=== PATIENT | male | born 1990 ===

== ENCOUNTER 2017-07-04 21:50 | Emergency (ER) | payer BC ==
[2017-07-04 21:55] VITALS: TEMP 98
--- NOTE | 2017-07-04 22:35 | C.PDOC ---
Time Seen by Provider: 07/04/17 22:05 Chief Complaint (Nursing): GI Problem History Per: Patient Onset/Duration Of Symptoms: Hrs (few) Current Symptoms Are (Timing): Still Present Context: Food (?) Severity: Moderate Quality Of Discomfort: denies: "Pain" Associated Symptoms: Nausea, Vomiting (x3) Alleviating Factors: None Additional History Per: Prior Records Past Medical History Reviewed: Historical Data, Nursing Documentation, Vital Signs Vital Signs: Last Vital Signs Temp 98 F 07/04/17 21:53 Pulse 62 07/04/17 21:53 Resp 16 07/04/17 21:53 BP 125/84 07/04/17 21:53 Pulse Ox 100 07/04/17 22:35 - Medical History PMH: Back Problems Surgical History: No Surg Hx Family History: States: Unknown Family Hx - Social History Hx Alcohol Use: Yes Hx Substance Use: No - Immunization History Hx Tetanus Toxoid Vaccination: No Hx Influenza Vaccination: No Hx Pneumococcal Vaccination: No Review Of Systems Except As Marked, All Systems Reviewed And Found Negative. Constitutional: Negative for: Fever, Weakness ENT: Positive for: Mouth Pain (right upper toothache for weeks). Negative for: Throat Pain Cardiovascular: Negative for: Chest Pain Respiratory: Negative for: Shortness of Breath Gastrointestinal: Positive for: Nausea, Vomiting. Negative for: Abdominal Pain , Diarrhea, Melena, Hematochezia, Hematemesis Genitourinary: Negative for: Dysuria Musculoskeletal: Negative for: Neck Pain, Back Pain Skin: Negative for: Rash Neurological: Negative for: Weakness, Numbness, Seizures, Altered Mental Status , Headache Physical Exam - Physical Exam Appears: Non-toxic, No Acute Distress Skin: Normal Color, Warm, Dry, No Rash Head: Atraumatic, Normacephalic Eye(s): bilateral: Normal Inspection, PERRL, EOMI Oral Mucosa: Moist, No Drooling, No Trismus Teeth: Caries Gingiva: No Abscess Neck: Normal ROM, Supple Cardiovascular: Rhythm Regular Respiratory: Normal Breath Sounds, No Accessory Muscle Use Gastrointestinal/Abdominal: Soft, No Tenderness, No Distention Back: No CVA Tenderness Extremity: Normal ROM Neurological/Psych: Oriented x3, Normal Cognition, Normal Motor, Normal Sensation ED Course And Treatment O2 Sat by Pulse Oximetry: 100 Pulse Ox Interpretation: Normal Progress - Interventions Interventions:: Observation - Medications Administered Intravenous: Antiemetic, H-2 kellie - Data Reviewed Data Reviewed: Old records - Patient Status Patient status: Completely improved - Continuity of Care Discussed patient case with:: Patient, Family-HIPPA compliant, ED Nurse - Patient Plan Patient Plan: Discharge, F/U with PCP Disposition Counseled Patient/Family Regarding: Studies Performed, Diagnosis, Need For Followup, Rx Given - Disposition Disposition: HOME/ ROUTINE Disposition Time: 23:16 Condition: IMPROVED Additional Instructions: Follow up with your doctor and with a Dentist. Return to the ER if you develop fever, abdominal pain, worsening of symptoms or if you have any other concerns. Prescriptions: Metoclopramide [Reglan] 1 tab PO TID PRN #15 tab PRN Reason: Nausea/Vomiting Instructions: Acute Nausea and Vomiting (ED), Dental Caries (ED) Forms: [employer] (L[employer]), [facility], Work Excuse - Clinical Impression Clinical Impression: Nausea & vomiting, Toothache
[2017-07-04 23:28] VITALS: BP 111/68; PULSE 78; RESP 20; O2SAT 99
== END 2017-07-04 23:28 | disposition home or self-care (01) ==
LOC: C.ER 21:50
DX: R11.2 Nausea with vomiting, unspecified (principal); K08.89 Other specified disorders of teeth and supporting structures

== ENCOUNTER 2017-07-07 18:01 | Emergency (ER) | payer BC ==
[2017-07-07] MEDS ORDERED: Sodium Chloride 0.9% 1,000 ML IV ONE (18:32)
--- NOTE | 2017-07-07 18:41 | C.PDOC ---
History Of Present Illness 26 year old male presents to the ED c/o 3-4 days of abdominal discomfort. Patient was seen in the ED on Wednesday where he had no tests done but was prescribed Reglan to use at home, patient reports the medication started to help but does not provide relief anymore. Patient reports he had 2 episodes of vomiting, is not able to eat now but when he does feels his stomach is "heavy". He states that when he is able to eat food feels like is stuck on his stomach and does not move. Patient also reports his urine is dark and has small bowel movements due to the fact that he does not eat. Patient denies fever, back pain , dysuria, hematuria, other medical issues. Time Seen by Provider: 07/07/17 18:24 Chief Complaint (Nursing): Abdominal Pain History Per: Patient History/Exam Limitations: no limitations Onset/Duration Of Symptoms: Days Current Symptoms Are (Timing): Still Present Location Of Pain/Discomfort: Diffuse Radiation Of Pain To:: None Quality Of Discomfort: "Pain" Associated Symptoms: Vomiting, Loss Of Appetite Exacerbating Factors: None Alleviating Factors: None Recent travel outside of the [place]: No Additional History Per: Patient Past Medical History Reviewed: Historical Data, Nursing Documentation, Vital Signs Vital Signs: Last Vital Signs Temp 98.4 F 07/07/17 18:15 Pulse 88 07/07/17 18:15 Resp 20 07/07/17 18:15 BP 132/88 07/07/17 18:15 Pulse Ox 97 07/07/17 20:13 - Medical History PMH: Back Problems Surgical History: No Surg Hx Family History: States: Unknown Family Hx - Social History Hx Alcohol Use: Yes Hx Substance Use: No - Immunization History Hx Tetanus Toxoid Vaccination: No Hx Influenza Vaccination: No Hx Pneumococcal Vaccination: No Review Of Systems Constitutional: Negative for: Fever, Chills Cardiovascular: Negative for: Chest Pain, Palpitations Respiratory: Negative for: Cough, Shortness of Breath Gastrointestinal: Positive for: Vomiting, Abdominal Pain, Constipation Genitourinary: Negative for: Dysuria, Hematuria Musculoskeletal: Negative for: Back Pain Skin: Negative for: Rash Neurological: Negative for: Weakness, Numbness Physical Exam - Physical Exam Appears: Non-toxic, No Acute Distress Skin: Normal Color, Warm, Dry Head: Atraumatic, Normacephalic Nose: No Discharge Oral Mucosa: Dry Neck: Normal ROM, Supple Chest: Symmetrical Cardiovascular: Rhythm Regular, No Murmur Respiratory: Normal Breath Sounds, No Rales, No Rhonchi, No Wheezing Gastrointestinal/Abdominal: Soft, No Tenderness, No Distention, No Rebound Extremity: Normal ROM, No Pedal Edema, No Calf Tenderness, No Swelling Neurological/Psych: Oriented x3, Normal Speech, Normal Cognition Gait: Steady ED Course And Treatment - Laboratory Results Result Diagrams: 07/07/17 18:44 07/07/17 18:44 Lab Interpretation: Abnormal (Low WBC with lymphocytic shift on diff.) O2 Sat by Pulse Oximetry: 97 (On RA) Pulse Ox Interpretation: Normal Reevaluation Time: 20:20 Reassessment Condition: Improved (after IV fluids and Protonix, Zofran and Pepcid.) Medical Decision Making Medical Decision Making: Impression : abdominal discomfort Plan: * Blood work * Pepcid 20 mg IVP * Protonix 40 mg IVP * IV fluids * Zofran 4 mg IVP * UA Disposition Counseled Patient/Family Regarding: Studies Performed, Diagnosis, Need For Followup, Rx Given - Disposition Referrals: [facility] [Outside] Disposition: HOME/ ROUTINE Disposition Time: 20:20 Condition: IMPROVED Prescriptions: Ondansetron ODT [Zofran ODT] 1 odt PO QID PRN #14 odt PRN Reason: Nausea/Vomiting Pantoprazole [Protonix] 40 mg PO DAILY #14 ect Instructions: Acute Abdominal Pain (ED) Forms: [facility] (Kiswahili) - Clinical Impression Clinical Impression: Abdominal pain - Scribe Statement The provider has reviewed the documentation as recorded by the Scribe Clifton Morgan All medical record entries made by the Scribe were at my direction and personally dictated by me. I have reviewed the chart and agree that the record accurately reflects my personal performance of the history, physical exam, medical decision making, and the department course for this patient. I have also personally directed, reviewed, and agree with the discharge instructions and disposition.
[2017-07-07] MEDS ORDERED: Sodium Chloride 0.9% 1,000 ML ONE (18:57)
[2017-07-07 18:59] LABS: BASO % 0.7 % (0.0-2.0); EOS # 0.2 K/uL (0.0-0.7); EOS % 5.7 % (0.0-4.0); HEMATOCRIT 45.1 % (35.0-51.0); LYMPH # 2.7 K/uL (1.0-4.3); MEAN CELL VOLUME 85.3 fL (80.0-94.0); MEAN CORPUSCULAR HEMOGLOBIN 27.9 pg (27.0-31.0); MEAN CORPUSCULAR HGB CONC 32.7 g/dL (33.0-37.0); MEAN PLATELET VOLUME 7.9 fL (7.2-11.7); MONO # 0.4 K/uL (0.0-0.8); MONO % 9.3 % (0.0-10.0); NRBC % 0.2 % (0.0-2.0); RED CELL DISTRIBUTION WIDTH 12.9 % (11.5-14.5); WHITE BLOOD COUNT 4.2 K/uL (4.8-10.8)
[2017-07-07 19:03] LABS: ALKALINE PHOSPHATASE 42 U/L (38-126); ALT/SGPT 43 U/L (21-72); AST/SGOT 38 U/L (17-59); BILIRUBIN,TOTAL 0.7 mg/dL (0.2-1.3); BLOOD UREA NITROGEN 19 mg/dL (9-20); CALCIUM 8.9 mg/dl (8.6-10.4); CARBON DIOXIDE 31 mmol/L (22-30); CHLORIDE 103 mmol/L (98-107); GFR AFRICAN-AMERICAN > 60; GLUCOSE,RANDOM 90 mg/dL (75-110); POTASSIUM 4.1 mmol/L (3.6-5.2); SODIUM 139 mmol/L (132-148); TOTAL PROTEIN 8.7 g/dL (6.3-8.3)
[2017-07-07 19:04] LABS: ALB/GLOB RATIO 1.1 (1.0-2.1)
[2017-07-07 20:38] VITALS: BP 101/66; PULSE 58; RESP 18; TEMP 97.4; O2SAT 100
== END 2017-07-07 20:38 | disposition home or self-care (01) ==
LOC: C.ER 18:01
DX: R10.9 Unspecified abdominal pain (principal)
CPT/HCPCS: 80053; 83690; 85025; 96361; 96374; 96375; 99284; C9113; J2405; J7040